=== PATIENT | female | born 1995 | race Caucasian/White ===

== ENCOUNTER 2024-04-18 10:55 | Outpatient (CLI) | payer OTHER, SELFPAY ==
[2024-04-18 12:58] LABS: HIV Combo NEGATIVE (Negative)
[2024-04-18 13:10] LABS: Hepatitis C Ab Qual. W/ RFX NEGATIVE (Negative)
[2024-04-18 14:59] LABS: RPR W/RFX Titers Nonreactive (Nonreactive)
[2024-04-19 05:08] LABS: Hepatitis B Surface Antigen Negative (Negative)
== END 2024-04-18 23:59 | disposition home or self-care (01) ==
LOC: LAB 10:57
PROVIDERS: PCP Nurse Practitioner Family; Visit Provider Obstetrics & Gynecology
DX: Z11.3 Encounter for screening for infections with a predominantly sexual mode of transmission (principal)
CPT/HCPCS: 36415; 86592; 86803; 87340; 87389

== ENCOUNTER 2024-04-28 12:54 | Outpatient (POV) | payer OTHER, SELFPAY ==
[2024-04-28 13:05] VITALS: BP 108/71; PULSE 75; RESP 18; O2SAT 98; BMI 27.4
--- NOTE | 2024-04-28 13:48 | A.OFFVIS_ITS ---
HPI Data of Consult Patient: new to practice Consult date: 04/28/24 Requesting Physician: Verónica Maher APRN Primary Care Provider: Wang Beard APRN Consult Narrative Reason for consult: Low back pain, bilateral hip pain History of present illness: Ms. Stephenson is a 29 year old female who presents today as a new patient. She is a referral from Kavita Beard's office. Today she rates her pain a 5 out of 10. Patient states that she has had low back and hip pain for the last 10 years unrelated to any specific trauma or injury. Patient does describe it as a constant throbbing sensation that is worse with certain positions such as prolonged sitting or laying flat. Patient does state that she frequently has to change positions due to the worsening pain and that it has progressed over the years. Patient does states she has a longstanding history of scoliosis and did play volleyball when she was younger and is unsure whether or not this played an additional role in her pains now. Patient has tried gucc-gax-hblwebh medications such as ibuprofen along with heat and ice and topicals with minimal relief. Patient has also done chiropractor therapy for years with minimal changes. She did start physical therapy yesterday however has not noticed improvement as of right now. Patient is interested in any help we may be able to provide. She denies any prior surgery or injection history. Patient does state that she starts a new job May 22. Her Hood has been reviewed and is appropriate. CC: Verónica Maher APRN [facility] Disclaimer: The information contained in this section may have been updated after the patient was seen, as this information can be updated by other users. Medical History (Updated 04/28/24 @ 13:52 by Verónica Maher APRN) History of PCOS Surgical History H/O abdominoplasty H/O tubal ligation Family History Other Anemia Cancer Diabetes Heart attack Hypertension Social History (Updated 04/18/24 @ 10:08 by LENCHO Dawson) Smoking Status: Current every day smoker alcohol intake: never substance use type: denies use current occupational status: unemployed Travel in the last 8 weeks: None Review of Systems Review of Systems Review of systems:: pertinent systems reviewed and negative unless documented below Review of systems (narrative): Review of Systems: General: No recent weight changes, no fever, no sleep disturbances Respiratory: No cough, no shortness of air, no recurring pulmonary infections Cardiovascular/peripheral vascular: No chest pain, no palpitations, no edema, no shortness of breath Gastrointestinal: No new onset incontinence, normal bowel movements reported Genitourinary: No new onset incontinence Musculoskeletal: Low back pain, bilateral hip pain Psychiatric: [Normal mood/affect] Neurological: [Denies weakness in extremities], [denies balance issues] Meds Home Medications and Allergies Home Medications ?Medication ?Instructions ?Recorded ?Confirmed ?Type fluticasone propionate 50 intranasal 04/18/24 04/18/24 History mcg/actuation nasal spray,suspension ibuprofen 800 mg tablet 800 mg PO PRN 04/18/24 04/18/24 History linaclotide 290 mcg capsule 290 mcg PO DAILY 04/18/24 04/18/24 History (Linzess) metformin 500 mg tablet 500 mg PO BID 04/18/24 04/18/24 History omeprazole 40 mg capsule,delayed 40 mg PO DAILY 04/18/24 04/18/24 History release pimecrolimus 1 % topical cream applic topical 04/18/24 04/18/24 History New Prescriptions to Start Prescriptions: Allergies Allergy/AdvReac Type Severity Reaction Status Date / Time bupropion Allergy Severe blurred Verified 04/18/24 10:00 vision cucumbers Allergy Severe rash Uncoded 04/18/24 10:00 oranges Allergy Severe Anaphylaxis Uncoded 04/18/24 10:00 Objective Narrative: Physical Exam: General: Alert and oriented x3, no acute distress, pleasant and cooperative Lungs: Respirations even and unlabored, symmetrical chest expansion Eyes: PERRL Musculoskeletal: Flexion and extension of lumbar [spine] somewhat guarded secondary to pain, [antalgic gait noted] point tenderness along bilateral SIs with positive bilateral Grayson's, Agustín's, Gaenslen's, compression and distraction exam, point tenderness along bilateral greater trochanteric bursa's Neurological: Speech clear, no gross sensory deficit Additional findings Additional findings: [facility] X-ray imaging cervical spine 04/12/2024: Vertebral body heights maintained. Disc spaces are relatively preserved. No paravertebral soft tissue swelling. Thoracic spine findings: Vertebral body heights are maintained. There is mild degenerative changes within the mid thoracic spine. Lumbar spine findings: Vertebral body heights are maintained. Disc spaces are preserved. No spondylolisthesis or spondylolysis Assessment and Plan *Assessment and plan (1) Bilateral sacroiliitis: Status: Acute Category: Medical Code(s): M46.1 - Sacroiliitis, not elsewhere classified (2) Greater trochanteric bursitis of both hips: Status: Acute Category: Medical Code(s): M70.61 - Trochanteric bursitis, right hip; M70.62 - Trochanteric bursitis, left hip (3) Low back pain: Status: Acute Category: Medical Code(s): M54.50 - Low back pain, unspecified (4) Bilateral hip pain: Status: Acute Category: Medical Code(s): M25.551 - Pain in right hip; M25.552 - Pain in left hip Plan Patient is experiencing worsening pain along the low back and bilateral hips. They did have limited range of motion of the lumbar spine along with point tenderness along bilateral SI joints and a positive bilateral Grayson's, Agustín's, Gaenslen's, compression and distraction exam. I did discuss with the patient that I do believe they would benefit from bilateral SI injections. Risk and benefits were discussed with the patient and they would like to proceed forward with this option. Patient has tried and failed conservative therapy including oral medications, heat and ice, topicals, chiropractor therapy and continued at home stretching exercise for longer than 12 weeks that was physician guided. Patient has also started current physical therapy. Patient has not had any injection therapy in the past and this pain has been going on for longer than 10 years intermittently. patient will be scheduled for bilateral SI injections under fluoroscopy. I will also order the patient a compounded cream. Patient has been instructed to contact the clinic with any concerns before the next appointment. Dr. Nieto has reviewed this note and agrees with this plan of care. This note was dictated using voice recognition software and make contain errors or omissions. All injections are used with Lidocaine or Bupivacaine and Depo Medrol.
== END 2024-04-28 23:59 | disposition home or self-care (01) ==
LOC: SC.PAIN 12:55
PROVIDERS: PCP Nurse Practitioner Family; Visit Provider Nurse Practitioner Family
DX: M46.1 Sacroiliitis, not elsewhere classified (principal); M70.61 Trochanteric bursitis, right hip; M70.62 Trochanteric bursitis, left hip; M54.50 Low back pain, unspecified; M25.551 Pain in right hip; M25.552 Pain in left hip; F17.200 Nicotine dependence, unspecified, uncomplicated
CPT/HCPCS: 99202; G0463